=== PATIENT | male | born 1960 | race Caucasian/White ===

== ENCOUNTER 2016-04-28 10:35 | Outpatient (CLI) | payer OTHER | END 2016-04-28 10:36 | disposition home or self-care (01) | DX: E05.00 Thyrotoxicosis with diffuse goiter without thyrotoxic crisis or storm (principal) ==

== ENCOUNTER 2016-05-05 | Outpatient (CLI) | payer OTHER | END 2016-05-05 12:47 | disposition home or self-care (01) | DX: Z01.810 Encounter for preprocedural cardiovascular examination (principal) ==

== ENCOUNTER 2016-05-11 07:22 | Day surgery (SDC) | payer OTHER ==
[2016-05-11] MEDS ORDERED: ceFAZolin 2 GM/50 ML 50 ML IV ONE (07:44)
[2016-05-11] MEDS ORDERED: LACTATED RINGERS 1,000 ML IV ONE ×2 (07:48→10:10)
[2016-05-11] MEDS ORDERED: ONDANSETRON 4 MG/2 ML VIAL IVP ONE (09:30)
[2016-05-11] MEDS ORDERED: LIDOCAINE-MPF 2% 5 ML VIAL IM ONE (09:30)
[2016-05-11] MEDS ORDERED: fentaNYL 100 MCG/2 ML VIAL IVP ONE (09:30)
[2016-05-11] MEDS ORDERED: MIDAZOLAM 2 MG/2 ML VIAL IVP ONE (09:30)
[2016-05-11] MEDS ORDERED: DEXAMETHASONE 4 MG/ML VIAL IVP ONE (09:30)
[2016-05-11] MEDS ORDERED: ROCURONIUM 50 MG/5 ML VIAL IVP ONE (09:30)
[2016-05-11] MEDS ORDERED: PROPOFOL 200 MG/20 ML VIAL IVP ONE (09:30)
[2016-05-11] MEDS ORDERED: SUCCINYLCHOLINE 200 MG/10 ML VIAL IVP ONE (09:30)
[2016-05-11] MEDS ORDERED: ePHEDrine 50 MG/ML AMP IVP ONE (09:30)
[2016-05-11] MEDS: LACTATED RINGERS 1,000 ML IV ONE ×2 (10:10→12:39)
[2016-05-11] MEDS ORDERED: BUPIVACAINE 0.5% PF 30 ML VIAL INFIL ONE (12:10)
[2016-05-11] MEDS: LACTATED RINGERS 1,000 ML IV SCH (13:30)
--- NOTE | 2016-05-11 14:05 | OPERATIVE REPORT ---
DATE OF SURGERY: 05/11/2016 00:00:00 PREOPERATIVE DIAGNOSIS: Graves disease, failed medical therapy. POSTOPERATIVE DIAGNOSIS: Graves disease, failed medical therapy. NAME OF PROCEDURE: Total thyroidectomy. SURGEON: Norm Fu MD ANESTHESIA: Randy Mccollum CRNA, (general endotracheal). TIME: 12:40 ANTISQUEAK CHALKER: MD Nick ESTIMATED BLOOD LOSS: 150 mL. FLUIDS: 1600 mL of crystalloid. SPECIMEN REMOVED: Thyroid. DETAILS OF PROCEDURE: After informed consent was obtained detailing the risks of infection, bleeding, nerve injury resulting in the difficulty to speak and were fully explained to the patient, the patient was taken to the operating room and placed supine on the operating room table. General endot maged anesthesia was induced by Randy Mccollum, and Randy Mccollum provided anesthesia care for the e ntirety of the case. The patient received preoperative antibiotics for prophylaxis against surgical i nfection. The patient had TEDs and Venodynes placed for prophylaxis against deep venous thrombosis. T he patient was then placed in a modified lawn chair position and prepped and draped in the usual charlie dard manner. At this point, a time-in was done that confirmed the patient's name, date of , [facility] record number, allergies, medications, and that we had the personnel and equipment required to pe rform the procedure. With the agreement of everyone in the room, the operation was allowed to proceed . A standard curvilinear incision was made 2 cm above the clavicle. A slightly larger incision was made due to the very enlarged nature of his thyroid. Dissection was carried out down past the platysma us ing Bovie electrocautery. Flaps were then raised superiorly and inferiorly using Bovie electrocautery . The midline was dissected using Bovie electrocautery, and flaps were arranged underneath the strap muscles both on the right and left hand side. The patient's left hand side was addressed first. The t hyroid was mobilized into the wound starting out laterally and moving medially. The superior pole was ligated using a 3-0 silk, and in addition a large clip was used. Please note that small vessels on t he thyroid or branching such as the middle thyroidal were clipped and cut. The superior and inferior parathyroids were seen on the left hand side and left in situ. The dissection then came up bringing u p the thyroid up off the trachea. Great care was taken to stay on the trachea. A small pyramidal lobe was encountered on the left hand side, and this was included with the specimen. Additionally, there was a very hard nodule in the middle portion of the thyroid posteriorly, which was clearly thyroidal, and also brought up with the specimen. Once we got to the midline, attention was placed to the patie nt's right hand side. In a similar manner, the thyroid was brought up off the trachea and brought fro m lateral to medially. The superior pole of the right thyroid was larger. This was brought up into th e wound. The superior pole was suture ligated. The inferior ligation on the superior pole did fall of f causing some bleeding. This was controlled. The thyroid was then taken up off the trachea using Bov ie electrocautery. The thyroid was then sent off operative field for pathologic evaluation. Prior to handing it off, the thyroid was reexamined, and no parathyroid tissue was seen attached to it. The le ft hand side also appeared to be slightly more nodular than the right-hand side. At this point in mathew e, hemostasis was obtained on both sides. There was some oozing but no directed bleeding that could b e seen. As a result, I placed a 10-Icelandic Jose Antonio drain through a separate stab incision inferiorly, an d the drain was placed on the right and left hand side. This was cut to fit. This drain was secured t o the skin using a 3-0 nylon suture, which was cabrera-sandaled about the drain. The strap muscles were approximated at the midline using a running 3-0 Vicryl suture. The platysma was approximated using i nterrupted 3-0 Vicryl sutures. The skin was approximated using a 5-0 nylon suture in an interrupted m attress fashion, and the drain was placed to grenade suction. The patient was subsequently extubated with a visualization of his vocal cords. His vocal cords were noted to be moving well. He was then ta arely to recovery room in good and stable condition having tolerated the procedure well. JOB #: [id number] EXT JOB #:[id number]
[2016-05-11] MEDS ORDERED: HYDROmorphone 1 MG/ML SYRINGE IVP PRN (14:14)
[2016-05-11] MEDS ORDERED: ONDANSETRON 4 MG/2 ML VIAL IVP PRN (14:14)
[2016-05-11] MEDS ORDERED: oxyCOD/ACETAMIN 5 MG/325 MG TABLET PO PRN (14:15)
[2016-05-11] MEDS ORDERED: SODIUM CHLORIDE FLUSH 0.9% 10 ML SYRINGE IVP PRN (14:16)
[2016-05-11] MEDS ORDERED: METOPROLOL TARTRATE 50 MG TABLET PO SCH (21:00)
[2016-05-12] MEDS: LACTATED RINGERS 1,000 ML IV SCH (00:25)
[2016-05-12] MEDS ORDERED: LEVOTHYROXINE 125 MCG TABLET PO SCH (07:00)
[2016-05-12 08:03] VITALS: BP 156/81
== END 2016-05-12 10:40 | disposition home or self-care (01) ==
LOC: SDS 07:22 → MS 12:40 → SDS 05-12 10:40
PROVIDERS: ATTEND Surgery
PROC: 0GTK0ZZ Resection of Thyroid Gland, Open Approach (ICD-10-PCS; principal; 2016-05-11 09:00)
DX: E05.00 Thyrotoxicosis with diffuse goiter without thyrotoxic crisis or storm (principal); J45.909 Unspecified asthma, uncomplicated; I10 Essential (primary) hypertension; Z85.21 Personal history of malignant neoplasm of larynx; G47.30 Sleep apnea, unspecified
CPT/HCPCS: 60240; 88307; A9270; J0690; J7120

== ENCOUNTER 2016-12-14 11:00 | Outpatient (CLI) | payer OTHER ==
[2016-12-14 21:14] LABS: CHOL/HDL RATIO 5.9 (<5.0); CHOLESTEROL 177 mg/dL; HDL CHOLESTEROL 30 mg/dL; LDL/HDL RATIO 4.4 (<3.6); TRIGLYCERIDES 71 mg/dL; VLDL CHOLESTEROL 14 mg/dL
== END 2016-12-14 11:01 | disposition home or self-care (01) ==
LOC: LAB.WCP 11:00
PROVIDERS: ATTEND Family Medicine
DX: E78.5 Hyperlipidemia, unspecified (principal); E03.9 Hypothyroidism, unspecified
CPT/HCPCS: 36415; 80061; 84443

== ENCOUNTER 2017-07-19 08:00 | Outpatient (CLI) | payer OTHER ==
[2017-07-19 19:41] LABS: ALBUMIN 4.5 g/dL (3.2-5.5); ALBUMIN/GLOBULIN RATIO 1.6 (1.0-2.2); ALKALINE PHOSPHATASE 92 IU/L (42-121); ALT ALANINE AMINOTRANSFERASE 17 IU/L (10-60); AST ASPARTATE AMINOTRANSFERASE 15 IU/L (10-42); BILIRUBIN,TOTAL 0.9 mg/dL (0.2-1.0); BUN - BLOOD UREA NITROGEN 18 mg/dL (6-20); CALCIUM 8.5 mg/dL (8.5-10.3); CARBON DIOXIDE - CO2 26 mmol/L (21-32); CHLORIDE 104 mmol/L (101-111); CHOL/HDL RATIO 6.5 (<5.0); CHOLESTEROL 201 mg/dL; CREATININE 0.9 mg/dL (0.6-1.2); GFR - MDRD 88 (>89); GLUCOSE 90 mg/dL (70-100); HDL CHOLESTEROL 31 mg/dL; LDL CHOLESTEROL,CALCULATED 156 mg/dL; SODIUM 137 mmol/L (135-145); TOTAL PROTEIN 7.4 g/dL (6.7-8.2); VLDL CHOLESTEROL 14 mg/dL
[2017-07-19 19:46] LABS: BASOPHILS % (AUTO) 0.5 %; EOSINOPHILS # (AUTO) 0.1 10^3/uL (0.0-0.7); EOSINOPHILS % (AUTO) 0.9 %; HGB - HEMOGLOBIN 14.5 g/dL (14.0-18.0); LYMPHOCYTES # (AUTO) 1.6 10^3/uL (1.5-3.5); LYMPHOCYTES % (AUTO) 25.3 %; MEAN CORPUSCULAR HEMOGLOBIN 30.5 pg (27.0-31.0); MEAN CORPUSCULAR HGB CONC 33.4 g/dL (32.0-36.0); MEAN CORPUSCULAR VOLUME 91.2 fL (80.0-94.0); MONOCYTES # (AUTO) 0.4 10^3/uL (0.0-1.0); MONOCYTES % (AUTO) 6.7 %; NEUTROPHILS # (AUTO) 4.3 10^3/uL (1.5-6.6); NEUTROPHILS % (AUTO) 66.6 %; PLT - PLATELET COUNT 137 10^3/uL (130-450); RED BLOOD COUNT 4.76 10^6/uL (4.70-6.10); RED CELL DISTRIBUTION WIDTH 14.2 % (12.0-15.0); WHITE BLOOD COUNT 6.5 x10^3/uL (4.8-10.8)
== END 2017-07-19 08:01 | disposition home or self-care (01) ==
LOC: LAB.WCP 08:00
PROVIDERS: ATTEND Family Medicine
DX: I10 Essential (primary) hypertension (principal); E03.9 Hypothyroidism, unspecified; E78.5 Hyperlipidemia, unspecified
CPT/HCPCS: 36415; 80053; 80061; 83721; 84443; 85025

== ENCOUNTER 2018-03-20 10:48 | Day surgery (SDC) | payer OTHER ==
[2018-03-20] MEDS ORDERED: LACTATED RINGERS 1,000 ML IV ONE (10:55)
[2018-03-20] MEDS ORDERED: MIDAZOLAM 2 MG/2 ML VIAL IVP ONE (12:04)
[2018-03-20] MEDS ORDERED: fentaNYL 250 MCG/5 ML VIAL IVP ONE (12:04)
[2018-03-20 12:59] VITALS: BP 127/77
== END 2018-03-20 10:49 | disposition home or self-care (01) ==
LOC: SDS 10:48
PROVIDERS: ATTEND Surgery
PROC: 0DJD8ZZ Inspection of Lower Intestinal Tract, Via Natural or Artificial Opening Endoscopic (ICD-10-PCS; principal; 2018-03-20 12:00)
DX: Z12.11 Encounter for screening for malignant neoplasm of colon (principal); Z87.19 Personal history of other diseases of the digestive system; K64.8 Other hemorrhoids; J45.909 Unspecified asthma, uncomplicated; I10 Essential (primary) hypertension; E78.00 Pure hypercholesterolemia, unspecified; E66.9 Obesity, unspecified; Z68.42 Body mass index [BMI] 45.0-49.9, adult; E89.0 Postprocedural hypothyroidism; Z89.011 Acquired absence of right thumb; Z85.21 Personal history of malignant neoplasm of larynx
CPT/HCPCS: 45378; J3010; J7120

== ENCOUNTER 2019-04-24 14:31 | Outpatient (CLI) | payer OTHER ==
--- NOTE | 2019-04-24 16:01 | XRAY Report ---
Reason: DYSPNEA ON EXERTION Procedure Date: 04/24/2019 Accession Number: [id number] / [id number] Procedure: WCP - Chest 2 View X-Ray CPT Code: 00418 Final Report FULL RESULT: EXAM: CHEST RADIOGRAPHY. EXAM DATE: 04/24/2019 02:31 PM. CLINICAL HISTORY: Dyspnea on exertion. COMPARISON: None. TECHNIQUE: 2 views. FINDINGS: Lungs/Pleura: No focal opacities evident. No pleural effusion. No pneumothorax. Normal volumes. Mediastinum: Heart and mediastinal contours are unremarkable. Other: None. IMPRESSION: Normal 2-view chest radiography. RADIA
== END 2019-04-24 14:32 | disposition home or self-care (01) ==
LOC: DI.WCP 14:31
PROVIDERS: ATTEND Family Medicine
DX: R06.09 Other forms of dyspnea (principal)
CPT/HCPCS: 71046

== ENCOUNTER 2019-07-18 07:45 | Outpatient (CLI) | payer OTHER | END 2019-07-18 07:46 | disposition home or self-care (01) | LOC: DI 07:45 | PROVIDERS: ATTEND Physician Assistant | DX: R06.09 Other forms of dyspnea (principal); I11.9 Hypertensive heart disease without heart failure | CPT/HCPCS: 93306 ==

== ENCOUNTER 2019-10-26 14:39 | Outpatient (CLI) | payer OTHER ==
[2019-10-26 15:28] VITALS: BP 148/90
--- NOTE | 2019-10-26 15:28 | SLEEP CARE CONSULTATION ---
Information from patient questionnaire entered by Fransisca Heredia. I have reviewed and concur with the information entered by Fransisca Heredia. This document represents the service I personally performed and the decisions made by , Nichole Noel ARNP. History of Present Illness Service Date and Time: 10/26/2019 1439 Reason for Visit: New patient, Previously diagnosed sleep apnea (Moderate - 23.3 in 2011), Re-establish care Chief Complaint: reports: Snoring, Observed pauses in breathing, Frequent awakenings at night, Other (Enlarged heart (assumed to sleep apnea). denies: Insomnia, Unrefreshed sleep, Excessive daytime sleepiness Duration of Symptoms: 07/2019 Usual bedtime: 8 pm Time it takes to fall asleep: 10-20 mins Snores at night: Yes Observed to quit breathing while asleep: Yes Sleeps alone due to snoring: No Number of times waking at night: 1-2 Reasons for waking at night: reports: Bathroom (very rarely), Other (internal clock). denies: Choking, Snoring, Gasping for air, Pain Toss, Turn, or Twitch while sleeping: Yes Recalls having dreams: Yes Usually gets out of bed at: 2:30 - 4 am Feels refreshed in the morning: Yes Morning headache: No Sleepy or fatigued during the day: No Ever fallen asleep while driving: No Takes day naps: No Dreams during day naps: No Prior sleep studies: Yes Year and Where: 2011 - [facility] Additional HPI information: Patient diagnosed with ALLEN in 2011. 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 After this treatment, he produced mucus that the CPAP pushed into his lungs and had to stop CPAP use. The mucus has since resolved for about the last year, not an issue since February 2019. He is here for re- evaluation and treatment discussion. - Parasomnia Symptoms Ever been unable to move upon waking from sleep: No Walks in sleep: No Talks in sleep: No Ever acted out dreams in sleep: No Ever felt weak in the knees when startled or emotional: No Bothered by creepy, crawly, restless sensations in legs: No Problems with memory or concentration: No Subjective Initial [place] Sleepiness Scale score: 4 (in 2011) Current [place] Sleepiness Scale score: 7 Past Medical History Past Medical History: reports: Hypertension, Hypothyroidism, Asthma, Other (Cholesterol). 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 Patient is and lives in [place]. Have you smoked in the past 12 months: No Alcohol use: No Caffeine use: No Family History Family history of sleep disordered breathing: Yes (parents) Family Hx Sleep Apnea: Father: Snoring Allergies and Home Medications Drug allergies reviewed: Yes (NKDA) Allergy and home medication list: Amlodipine Levothyroxine Losartan inhaler for possible asthma Review of Systems Review of systems same as previous: Yes Weight gain over past 5 years: 45 Cardiovascular: reports: high blood pressure, leg or foot swelling. denies: palpitations, chest pain, irregular heart rate or pulse, have to sleep sitting up Respiratory: reports: shortness of breath. denies: wheeze, chronic cough Gastrointestinal: denies: heartburn, difficulty swallowing, abdominal pain Urinary: denies: impotence Neurological: denies: headaches, seizure, head trauma, disorientation, speech dysfunction, gait or balance problems Psychiatric: denies: Attention Deficit Hyperactivity, anxiety, depression, mood disorder Ear/Nose/Throat: reports: hoarseness, wisdom teeth removed (2 left side). denies: nasal congestion, sinus problems, nose bleeds, dry mouth/throat, injury to nose, tonsillectomy Endocrine: denies: sluggishness, too hot or cold, excessive thirst, increased appetite, increased urination, unexplained weakness Musculoskeletal: denies: joint pain, neck pain, back pain, joint swelling, muscle pain or cramping, mobility problems, other Immunologic: denies: sneezing, rash, itching, allergies to food or environment, other Physical Exam Blood Pressure: 148/90 Cuff size: long Heart Rate: 87 O2 Saturation: 96 Height: 6 ft 7 in Weight: 419 lb Body Mass Index: 47.2 BMI Classification: Morbidly Obese Neck circumference: 20.5 HEENT: No craniofacial malformation Nostrils: patent to airflow Turbinates: normal Septum: midline Mouth and throat: normal Soft palate: normal Hard palate: normal Uvula: normal Uvula visualization: 50% Mallampati Class II Tongue: normal in size Tonsils: 2+ Chin and jaw: normal size and position Heart: regular rate and rhythm Lungs: clear bilaterally Impression and Plan 1. Obstructive Sleep Apnea-Hypopnea Syndrome, as previously diagnosed and matute ggested by a history of loud snoring, observed cessation of breath while asleep and frequent awakening during the night. Patient did have positive previous study showing AHI 23.3 in 2011. 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 The mucus production was so high he was inhaling mucus into his lungs and the CPAP was discontinued until this cleared up. He states since Feb 2019 the mucus has reduced and he is ready to address his sleep breathing issues found in 2012. I recommend proceeding to polysomnography to confirm the diagnosis and to assess severity. I informed the patient of what the sleep studies involve and after some discussion, obtained agreement to proceed. The pathophysiology of obstructive sleep apnea-hypopnea syndrome was discussed with the patient and health risks of cardiovascular and cerebrovascular disease if not treated. Risks of drowsy driving discussed in detail and patient advised to avoid long distance driving and to pin puller at the first sign of drowsiness. Patient agreed to plan. * Schedule polysomnography and return in 1-2 weeks after the study to discuss result and initiate therapy. * Avoid long distance driving or driving when feeling sleepy. * Avoid alcohol, sedative and muscle relaxant around bedtime. * Attempt to lose weight. * Review instructions provided by trained office staff on how to prepare for the sleep study. * Return for follow-up after sleep study completed. Visit Type: In Office Time Spent with Patient (minutes): 30 Provider Statement: I spent 100% of the Face to Face Visit with the patient with greater than 50% spent counseling the patient and coordination of care.
== END 2019-10-26 14:40 | disposition home or self-care (01) ==
LOC: SC 14:39
PROVIDERS: ATTEND Nurse Practitioner Family
DX: G47.33 Obstructive sleep apnea (adult) (pediatric) (principal); E66.01 Morbid (severe) obesity due to excess calories; Z68.42 Body mass index [BMI] 45.0-49.9, adult
CPT/HCPCS: 99204; 99212

== ENCOUNTER 2019-11-23 19:30 | Outpatient (CLI) | payer OTHER | END 2019-11-23 23:59 | disposition home or self-care (01) | LOC: SC 19:30 | PROVIDERS: ATTEND Internal Medicine Pulmonary Disease | DX: G47.33 Obstructive sleep apnea (adult) (pediatric) (principal); E66.01 Morbid (severe) obesity due to excess calories; Z68.42 Body mass index [BMI] 45.0-49.9, adult | CPT/HCPCS: 95806 ==

== ENCOUNTER 2020-02-13 16:43 | Outpatient (CLI) | payer OTHER ==
--- NOTE | 2020-02-13 17:14 | SLEEP CARE CONSULTATION ---
Information from patient questionnaire entered by Abelardo Mock. I have reviewed and concur with the information entered by Abelardo Mock. This document represents the service I personally performed and the decisions made by me, Nichole Noel ARNP. History of Present Illness Service Date and Time: 02/13/2020 1643 Previous diagnosis: Severe, Obstructive Sleep Apnea-Hypopnea Syndrome AHI: 53.7 Reason for follow up: first compliance (12/30/19) Equipment type: CPAP Equipment obtained from: [employer] ([place]; original shipment so far) Mask style: Nasal pillows Backup mask available: No (keep mask when replaced next) Last cushion change: over a month Prior sleep [facility]: Yes [facility] HPI additional information: IRMA SANCHEZ was diagnosed to have severe, AHI 53.7, obstructive sleep apnea-hypopnea syndrome and returned today for CPAP therapy first compliance follow-up. Sleep Study - Results Prior sleep studies: Yes Year and Where: 2011 - [facility] CPAP Compliance Data - Data Reviewed with Patient Average duration of nightly device use: 7 h 4 min Compliance rate %: 100 Current pressure setting (cmH2O): 4-15 Average residual AHI: 1.0 Central apnea: 0.0 Obstructive apnea: 0.6 Subjective Patient concerns: reports: other (feels like there is a little water in ears, improved). denies: aerophagia, mask discomfort, air blowing in eyes, mask leak noise, condensation in mask/hose, nasal congestion, dry mouth, nose, throat, epistaxis Observed to snore while using device: No (as far he knows) Current pressure setting perceived as: comfortable On therapy, patient: reports: other (he is unsure if there is a change from before starting therapy). denies: drowsiness while driving Initial [place] Sleepiness Scale score: 4 (in 2012) Current [place] Sleepiness Scale score: 0 Allergies and Home Medications Drug allergies reviewed: Yes (NKDA) Home medication list reviewed: Yes (no changes) Review of Systems Review of systems same as previous: Yes (no changes) Physical Exam Heart Rate: 87 O2 Saturation: 97 Height: 6 ft 7 in Weight: 412 lb Body Mass Index: 46.4 BMI Classification: Morbidly Obese Impression and Plan 1. Obstructive Sleep Apnea-Hypopnea Syndrome, severe, with excellent treatment compliance and good apnea control. On CPAP therapy, the patient does not feel like there is any difference in his overall sleep and daily energy but his Arma scale is 0 today. He also has excellent apnea control with a residual AHI of 1.0. I will adjust his pressure to 10-14 cm H2O since his median pressure is 9.9 cm H2O, his 95% pressure is 12.9 cm H2O and max pressure at 14.1 cm H2O. He was able to use a nasal pillows mask with good results but has not gotten more supplies to change out his cushion. I encouraged him to call the company to find out how to order his new supplies. He voiced understanding and agreement with plan. Patient's apnea severity and rationale for treatment to reduce apnea, improve sleep quality and reduce cardiovascular and cerebrovascular events was reviewed. I also reviewed the benefit of consistent device use of CPAP for hypertension. * Change autoCPAP pressure to 10-14 cmH2O * Notify me if snoring with mask or feeling that the pressure is too much or too little * Attempt to lose weight * Call this office if any problems using CPAP * Return for follow up in 1-2 months, or sooner if concerns arise Counseling Topics: Spare mask, Weight loss health impact Visit Type: In Office Time Spent with Patient (minutes): 18 Provider Statement: I spent 100% of the Face to Face Visit with the patient with greater than 50% spent counseling the patient and coordination of care.
== END 2020-02-13 16:44 | disposition home or self-care (01) ==
LOC: SC 16:43
PROVIDERS: ATTEND Nurse Practitioner Family
DX: G47.33 Obstructive sleep apnea (adult) (pediatric) (principal); E66.01 Morbid (severe) obesity due to excess calories; Z68.42 Body mass index [BMI] 45.0-49.9, adult
CPT/HCPCS: 99212

== ENCOUNTER 2020-03-25 11:11 | Outpatient (CLI) | payer OTHER ==
--- NOTE | 2020-03-25 11:48 | SLEEP CARE CONSULTATION ---
Information from patient questionnaire entered by Fransisca Heredia. I have reviewed and concur with the information entered by Fransisca Heredia. This document represents the service I personally performed and the decisions made by , Nichole Noel ARNP. History of Present Illness Service Date and Time: 03/25/2020 1111 Previous diagnosis: Severe, Obstructive Sleep Apnea-Hypopnea Syndrome AHI: 53.7 (in 2019)(23.3 in 2012) Reason for follow up: other (6 week with pressure change) Equipment type: CPAP Equipment obtained from: [employer] (getting supplies as needed) Mask style: Nasal pillows Backup mask available: No (other mask) Last cushion change: 1 month Prior sleep studies: Yes Year and Where: 2019 - [facility] ; 2011 - [facility] ([place]) Type of Sleep Study: Home sleep study HPI additional information: IRMA SANCHEZ was diagnosed to have severe, AHI 53.7, obstructive sleep apnea-hypopnea syndrome and returned today for CPAP therapy 6 week pressure change follow-up. CPAP Compliance Data - Data Reviewed with Patient Average duration of nightly device use: 6 hr 40 min Compliance rate %: 100 Current pressure setting (cmH2O): 10-14 Humidity settin Average residual AHI: 0.7 Subjective Patient concerns: denies: aerophagia, mask discomfort, air blowing in eyes, mask leak noise, condensation in mask/hose, nasal congestion, dry mouth, nose, throat, epistaxis, other Observed to snore while using device: No Current pressure setting perceived as: comfortable On therapy, patient: reports: sleeping better, awakening more refreshed, being more awake and alert during the day, more rested overall. denies: drowsiness while driving Initial [place] Sleepiness Scale score: 4 (in 2012) Current [place] Sleepiness Scale score: 3 Allergies and Home Medications Drug allergies reviewed: Yes (NKDA) Home medication list reviewed: Yes (no changes) Review of Systems Review of systems same as previous: Yes (no changes) Physical Exam Heart Rate: 87 O2 Saturation: 97 Height: 6 ft 7 in Weight: 410 lb Weight change since last visit: 2 lbs Body Mass Index: 46.1 BMI Classification: Morbidly Obese Impression and Plan 1. Obstructive Sleep Apnea-Hypopnea Syndrome, severe, with excellent treatment compliance and great apnea control. On CPAP therapy, the patient has better sleep quality and is more rested overall. He is feeling very comfortable with his CPAP therapy. He has had the headgear come up a little on the back of his head but it is not coming off of his head. I explained to patient that there is some headgear arms that could be obtained and used to help keep the back of the headgear down on the head if this should become a problem. He states it is not problematic yet and will keep this in mind. We will follow up with him in 3 months. Patient's apnea severity and rationale for treatment to reduce apnea, improve sleep quality and reduce cardiovascular and cerebrovascular events was reviewed. I also reviewed the benefit of consistent device use of CPAP for hypertension. * Continue auto CPAP pressure at 10-14 cmH2O * Notify me if snoring with mask or feeling that the pressure is too much or too little * Attempt to lose weight * Call this office if any problems using CPAP * Return for follow up in 3 months, or sooner if concerns arise Counseling Topics: Spare mask, Weight loss health impact Visit Type: In Office Time Spent with Patient (minutes): 17 Provider Statement: I spent 100% of the Face to Face Visit with the patient with greater than 50% spent counseling the patient and coordination of care.
== END 2020-03-25 11:12 | disposition home or self-care (01) ==
LOC: SC 11:11
PROVIDERS: ATTEND Nurse Practitioner Family
DX: G47.33 Obstructive sleep apnea (adult) (pediatric) (principal); E66.01 Morbid (severe) obesity due to excess calories; Z68.42 Body mass index [BMI] 45.0-49.9, adult
CPT/HCPCS: 99212; 99213

== ENCOUNTER 2020-04-15 11:21 | Outpatient (CLI) | payer OTHER ==
--- NOTE | 2020-04-15 17:07 | CT Report ---
PROCEDURE: CHEST WO INDICATIONS: DYSPNEA ON EXERTION TECHNIQUE: Noncontrast 5 mm thick sections acquired from the pulmonary apices to the posterior costophrenic angl es. 7 mm thick coronal and sagittal MIP reformats were then acquired. For radiation dose reduction, the following was used: automated exposure control, adjustment of mA and/or kV according to patient size. COMPARISON: FINDINGS: Image quality: Excellent. Lungs and pleura: No acute air space opacities. There is no sign of pneumonia or pneumonitis, or pu lmonary fibrotic change. Note is made of a mild degree of mid and lower lung peribronchial soft tissu e prominence consistent with mild chronic bronchitis. No bronchiectasis is present. No pleural effusi ons or pneumothorax. Central and peripheral airways are patent and normal in caliber. Mediastinum: Heart size is normal. No pericardial effusion. No mediastinal adenopathy by size crit eria. Thoracic aorta and central pulmonary arteries are normal in size. Esophagus is normal in [place] adalid. No hiatal hernia. Bones and chest wall: No suspicious bony lesions. No vertebral body compression fractures. No axil rachel or supraclavicular adenopathy by size criteria. The thyroid is normal in size. Abdomen: Visualized upper abdominal solid organs and bowel loops appear normal in the absence of con trast. IMPRESSION: No alveolitis or pulmonary fibrosis present, no sign of emphysematous change. By this examination und erlying mild chronic bronchitis is suspected given the small degree of peribronchial soft tissue prom inence noted within the mid and lower lungs. No reactive adenopathy is seen. No aortic aneurysm or di ssection is detected., Reviewed by: Flakito Kwok MD on 04/15/2020 5:06 PM PST Approved by: Flakito Kwok MD on 04/15/2020 5:06 PM PST Station ID: [id number]
== END 2020-04-15 11:22 | disposition home or self-care (01) ==
LOC: DI 11:21
PROVIDERS: ATTEND Physician Assistant
DX: R06.09 Other forms of dyspnea (principal)
CPT/HCPCS: 71250

== ENCOUNTER 2020-06-25 10:57 | Outpatient (CLI) | payer OTHER ==
--- NOTE | 2020-06-25 11:23 | SLEEP CARE CONSULTATION ---
Information from patient questionnaire entered by Fransisca Heredia. I have reviewed and concur with the information entered by Fransisca Heredia. This document represents the service I personally performed and the decisions made by , Nichole Noel ARNP. History of Present Illness Service Date and Time: 06/25/2020 1057 Previous diagnosis: Severe, Obstructive Sleep Apnea-Hypopnea Syndrome AHI: 53.7 (in 2019) Reason for follow up: three month Equipment type: CPAP Equipment obtained from: [employer] (getting supplies as needed) Mask style: Nasal pillows Backup mask available: No (will keep mask once replaced) Last cushion change: February Prior sleep studies: Yes Year and Where: 2019 - [email or web address] ; 2011 - [email or web address] ([place]) Type of Sleep Study: Home sleep study HPI additional information: IRMA SANCHEZ was diagnosed to have severe, AHI 53.7, obstructive sleep apnea-hypopnea syndrome and returned today for CPAP therapy three month follow- up. CPAP Compliance Data - Data Reviewed with Patient Average duration of nightly device use: 6 hr 45 min Compliance rate %: 100 (90 days) Current pressure setting (cmH2O): 10-14 Humidity settin Average residual AHI: 0.5 Subjective Patient concerns: denies: aerophagia, mask discomfort, air blowing in eyes, mask leak noise, condensation in mask/hose, nasal congestion, dry mouth, nose, throat, epistaxis, other Observed to snore while using device: No Current pressure setting perceived as: comfortable On therapy, patient: reports: other (he feels little difference between CPAP use and prior to CPAP use). denies: drowsiness while driving Initial [place] Sleepiness Scale score: 4 (in 2011) Current [place] Sleepiness Scale score: 3 Allergies and Home Medications Home medication list reviewed: Yes (no changes) Review of Systems Review of systems same as previous: Yes (no changes) Physical Exam Heart Rate: 58 O2 Saturation: 98 Height: 6 ft 7 in Weight: 402 lb Weight change since last visit: 8 loss Body Mass Index: 45.3 BMI Classification: Morbidly Obese Impression and Plan 1. Obstructive Sleep Apnea-Hypopnea Syndrome, severe, with excellent treatment compliance and excellent apnea control. On CPAP therapy, the patient states that he wakes up feeling rested just as he did before starting CPAP therapy. His current [place] is 3/24 which is down from the 08/02 initially. He has no issues or concerns with CPAP use. He has been losing weight since he started CPAP. He lost 8 pounds since his last visit. He was encouraged to continue to try to lose weight. Patient's apnea severity and rationale for treatment to reduce apnea, improve sleep quality and reduce cardiovascular and cerebrovascular events was reviewed. I also reviewed the benefit of consistent device use of CPAP for hypertension. * Continue auto CPAP pressure at 10-14 cmH2O * Notify me if snoring with mask or feeling that the pressure is too much or too little * Continue to lose weight * Call this office if any problems using CPAP * Return for follow up in 1 year, or sooner if concerns arise Counseling Topics: Spare mask, Weight loss health impact Visit Type: In Office Time Spent with Patient (minutes): 15 Provider Statement: I spent 100% of the Face to Face Visit with the patient with greater than 50% spent counseling the patient and coordination of care.
== END 2020-06-25 10:58 | disposition home or self-care (01) ==
LOC: SC 10:57
PROVIDERS: ATTEND Nurse Practitioner Family
DX: G47.33 Obstructive sleep apnea (adult) (pediatric) (principal); E66.01 Morbid (severe) obesity due to excess calories; Z68.42 Body mass index [BMI] 45.0-49.9, adult
CPT/HCPCS: 99212

== ENCOUNTER 2021-06-23 15:53 | Outpatient (CLI) | payer OTHER ==
[2021-06-23 16:36] VITALS: BP 130/69
--- NOTE | 2021-06-23 16:36 | SLEEP CARE CONSULTATION ---
Information from patient questionnaire entered by Evette Sanchez MA. I have reviewed and concur with the information entered by Evette Sanchez MA. This document represents the service I personally performed and the decisions made by , Nichole Noel ARNP. History of Present Illness Service Date and Time: 06/23/2021 1553 Previous diagnosis: Severe, Obstructive Sleep Apnea-Hypopnea Syndrome AHI: 53.7 (in 2019) Reason for follow up: annual (LAST SEEN 05/2020,) Equipment type: CPAP Equipment obtained from: [employer] (getting supplies as needed) Mask style: Nasal pillows Backup mask available: Yes (old mask) Last cushion change: 1.5 months ago Prior sleep studies: Yes Year and Where: 2019 - [facility] ; 2011 - [facility] ([place]) Type of Sleep Study: Home sleep study HPI additional information: IRMA SANCHEZ was diagnosed to have severe, AHI 53.7, obstructive sleep apnea-hypopnea syndrome and returned today for CPAP therapy annual follow-up. Sleep Study - Results Type of Sleep Study: Home sleep study Prior sleep studies: Yes Year and Where: 2019 - [facility] ; 2011 - [facility] ([place]) CPAP Compliance Data - Data Reviewed with Patient Average duration of nightly device use: 6 HOURS 52 MINUTES Compliance rate %: 100 Current pressure setting (cmH2O): 10-14 Average residual AHI: 0.3 Central apnea: .0 Obstructive apnea: .1 Average large leak: 31.8 Subjective Patient concerns: denies: aerophagia, mask discomfort, air blowing in eyes, mask leak noise, condensation in mask/hose, nasal congestion, dry mouth, nose, throat, epistaxis, other Observed to snore while using device: No Current pressure setting perceived as: comfortable On therapy, patient: reports: other (no changes from before he started using CPAP ). denies: drowsiness while driving Initial [place] Sleepiness Scale score: 4 (in 2011) Current [place] Sleepiness Scale score: 1 Allergies and Home Medications Home medication list reviewed: Yes (no changes) Allergy and home medication list: Allergies No Known Drug Allergies Allergy (Verified 06/29/19 09:40) Review of Systems Review of systems same as previous: Yes (no changes) Physical Exam Vital signs obtained and entered by: DAVID ATKINS Blood Pressure: 130/69 (left) Cuff size: long Heart Rate: 78 O2 Saturation: 96 Height: 6 ft 7 in Weight: 404 lb Weight change since last visit: 2 lb gain Body Mass Index: 45.5 BMI Classification: Morbidly Obese Impression and Plan 1. Obstructive Sleep Apnea-Hypopnea Syndrome, severe, with excellent treatment compliance and excellent apnea control. On CPAP therapy, the patient has not noticed any difference from before he started using CPAP to after with his quality of sleep were restfulness. He does use his CPAP regularly and has significant improvement of his sleep apnea. He has no issues or complaints with using his CPAP. Patient's apnea severity and rationale for treatment to reduce apnea, improve sleep quality and reduce cardiovascular and cerebrovascular events was reviewed. I also reviewed the benefit of consistent device use of CPAP for hypertension. 2. Obesity, unspecified. Patient has gained weight. Currently patients BMI is 45.5. Obesity increases the risk of apnea, CPAP pressure requirements and overall health risks especially cardiovascular and diabetes. Thus patient is advised to lose weight. Weight loss can be done with reducing portion size, reducing refined foods and balancing content with vegetables, fruit and whole grain foods. In addition, patient encouraged to get regular exercise. The patient's CPAP pressure range should accommodate some weight loss. * Continue auto CPAP pressure at 10-14 cmH2O * Notify me if snoring with mask or feeling that the pressure is too much or too little * Attempt to lose weight * Call this office if any problems using CPAP * Return for follow up in 1 year, or sooner if concerns arise Counseling Topics: Spare mask, Weight loss health impact Visit Type: In Office Time Spent with Patient (minutes): 13 Provider Statement: I spent 100% of the Face to Face Visit with the patient with greater than 50% spent counseling the patient and coordination of care.
== END 2021-06-23 15:54 | disposition home or self-care (01) ==
LOC: SC 15:53
PROVIDERS: ATTEND Nurse Practitioner Family
DX: G47.33 Obstructive sleep apnea (adult) (pediatric) (principal); E66.01 Morbid (severe) obesity due to excess calories; Z68.42 Body mass index [BMI] 45.0-49.9, adult
CPT/HCPCS: 99212

== ENCOUNTER 2021-09-01 14:27 | Outpatient (CLI) | payer OTHER ==
--- NOTE | 2021-09-01 16:57 | XRAY Report ---
PROCEDURE: Knee 3 View LT INDICATIONS: L KNEE PX TECHNIQUE: 3 views of the left knee(s) were acquired. COMPARISON: None. FINDINGS: Bones: No fractures or dislocations. No suspicious bony lesions. Moderate tricompartmental arthrit ic change. Periarticular osteophytes are present. No erosions. Soft tissues: Minimal joint effusion. No suspicious soft tissue calcifications. IMPRESSION: Tricompartmental arthritic change. Reviewed by: Bria Mortensen MD on 09/01/2021 4:56 PM PDT Approved by: Bria Mortensen MD on 09/01/2021 4:56 PM PDT Station ID: [id number]
== END 2021-09-01 14:28 | disposition home or self-care (01) ==
LOC: DI.N 14:27
PROVIDERS: ATTEND Nurse Practitioner Family
DX: M17.12 Unilateral primary osteoarthritis, left knee (principal)

== ENCOUNTER 2021-12-07 08:00 | Outpatient (CLI) | payer OTHER ==
--- NOTE | 2021-12-07 16:13 | XRAY Report ---
PROCEDURE: Knee 2 View LT INDICATIONS: KNEE PAIN TECHNIQUE: Weightbearing. 2 views of the left knee, one view of the right knee. COMPARISON: Left knee radiographs 09/01/2021 FINDINGS: Bones: No fractures or dislocations. No suspicious bony lesions. Similar mild narrowing and spurri ng at the medial and lateral compartments of the left knee. Mild medial compartment narrowing of the right knee also demonstrated. Soft tissues: No suspicious soft tissue calcifications. IMPRESSION: Similar degenerative changes of the left knee. Reviewed by: Howard Randhawa MD on 12/07/2021 4:12 PM PDT Approved by: Howard Randhawa MD on 12/07/2021 4:12 PM PDT Station ID: [id number]
== END 2021-12-07 23:59 | disposition home or self-care (01) ==
LOC: DI.WOS 08:00
PROVIDERS: ATTEND Physician Assistant Surgical
DX: M17.12 Unilateral primary osteoarthritis, left knee (principal)

== ENCOUNTER 2022-08-25 13:45 | Outpatient (CLI) | payer OTHER ==
--- NOTE | 2022-08-25 14:16 | Sleep Patient Instructions ---
Sleep Center Visit Summary - Patient Visit Information Reason for Visit: Annual follow up for CPAP therapy - Patient Instructions Additional Instructions: You will continue with CPAP therapy with pressure set at 10-14 cmH2O. A supply prescription will be updated with your DME. We encourage you to continue to try to lose weight. Please follow up with the sleep care office in 1 year. - Clinic Information Contact: [facility] [address] [place] [address] [email or web address] T: [phone]
--- NOTE | 2022-08-25 14:28 | SLEEP CARE CONSULTATION ---
Information from patient questionnaire entered by Jennifer Rivas. I have reviewed and concur with the information entered by Jennifer Rivas. This document represents the service I personally performed and the decisions made by me, Nichole Noel ARNP. History of Present Illness Service Date and Time: 08/25/2022 1345 Previous diagnosis: Severe, Obstructive Sleep Apnea-Hypopnea Syndrome AHI: 53.7 (in 2019) Reason for follow up: annual (LAST SEEN 06/2021) Equipment type: CPAP (RESMED Airsense 10, s/u 12/2019) Equipment obtained from: [employer] (getting supplies as needed) Mask style: Nasal pillows Backup mask available: Yes (old mask) Last cushion change: 6 weeks Prior sleep studies: Yes Year and Where: 2019 - [email or web address] ; 2011 - [facility] ([place]) Type of Sleep Study: Home sleep study HPI additional information: IRMA SANCHEZ was diagnosed to have severe, AHI 53.7, obstructive sleep apnea-hypopnea syndrome and returned today for CPAP therapy annual follow-up. Sleep Study - Results Type of Sleep Study: Home sleep study Prior sleep studies: Yes Year and Where: 2019 - [facility] ; 2011 - [facility] ([place]) CPAP Compliance Data - Data Reviewed with Patient Average duration of nightly device use: 6 HRS 47 MINS Compliance rate %: 100 (02/25/22-08/23/22; 180/180 days used) Current pressure setting (cmH2O): 10-14 Average residual AHI: 0.2 Central apnea: 0.0 Obstructive apnea: 0.1 Hypopnea: 0.1 Average large leak: 3.0 L/min Subjective Patient concerns: denies: aerophagia, mask discomfort, air blowing in eyes, mask leak noise, condensation in mask/hose, nasal congestion, dry mouth, nose, throat, epistaxis Observed to snore while using device: No Current pressure setting perceived as: comfortable On therapy, patient: reports: sleeping better, awakening more refreshed, being more awake and alert during the day, more rested overall. denies: drowsiness while driving Initial [place] Sleepiness Scale score: 4 (in 2011) Current [place] Sleepiness Scale score: 0 (08/25/22) Allergies and Home Medications Known drug allergies: No Drug allergies reviewed: Yes Home medication list reviewed: Yes (no changes) Allergy and home medication list: Allergies No Known Drug Allergies Allergy (Verified 08/24/22 14:08) Review of Systems Review of systems same as previous: Yes (no changes) Physical Exam Vital signs obtained and entered by: JENNIFER Mejia MA Blood Pressure: 144/82 (LEFT ARM) Cuff size: long Heart Rate: 76 O2 Saturation: 95 Height: 6 ft 7 in Weight: 425 lb 12.8 oz (with clothes/shoes) Weight change since last visit: 21 lb gain Body Mass Index: 47.9 BMI Classification: Morbidly Obese Impression and Plan 1. Obstructive Sleep Apnea-Hypopnea Syndrome, severe, with good treatment compliance and good apnea control. On CPAP therapy, the patient has better sleep quality and is more rested overall. Patient has significant improvement of their sleep apnea and is satisfied with current CPAP therapy. Patient denies problems with oral dryness, nasal congestion, epistaxis, skin irritation or aerophagia. Patient's apnea severity and rationale for treatment to reduce apnea, improve sleep quality and reduce cardiovascular and cerebrovascular events was reviewed. I also reviewed the benefit of consistent device use of CPAP for hypertension. 2. Obesity, unspecified. Currently patients BMI is 47.9. Obesity increases the risk of apnea, CPAP pressure requirements and overall health risks especially cardiovascular and diabetes. Thus patient is advised to lose weight. * Continue auto CPAP pressure at 10-14 cmH2O * Update supplies * Notify me if snoring with mask or feeling that the pressure is too much or too little * Attempt to lose weight * Call this office if any problems using CPAP * Return for follow up in 1 year, or sooner if concerns arise Counseling Topics: Weight loss health impact Visit Type: In Office Time Spent with Patient (minutes): 14 Provider Statement: I spent 100% of the Face to Face Visit with the patient with greater than 50% spent counseling the patient and coordination of care.
[2022-08-25 14:29] VITALS: BP 144/82
== END 2022-08-25 13:46 | disposition home or self-care (01) ==
LOC: SC 13:45
PROVIDERS: ATTEND Nurse Practitioner Family
DX: G47.33 Obstructive sleep apnea (adult) (pediatric) (principal); E66.01 Morbid (severe) obesity due to excess calories; Z68.42 Body mass index [BMI] 45.0-49.9, adult
CPT/HCPCS: 99212

== ENCOUNTER 2023-08-26 08:29 | Outpatient (CLI) | payer OTHER ==
--- NOTE | 2023-08-26 08:48 | Sleep Patient Instructions ---
Sleep Center Visit Summary - Patient Visit Information Reason for Visit: Annual follow-up - Patient Instructions Additional Instructions: You will continue with CPAP therapy with pressure set at 10-14 cmH2O. A supply prescription will be updated with your DME. We encourage you to continue to try to lose weight. Please follow up with the sleep care office in 1 year. - Clinic Information Contact: [facility] [address] [place] [address] [email or web address] T: [phone]
--- NOTE | 2023-08-26 08:52 | SLEEP CARE CONSULTATION ---
Information from patient questionnaire entered by Kyung Rivas. I have reviewed and concur with the information entered by Kyung Rivas. This document represents the service I personally performed and the decisions made by , Nichole Noel ARNP. History of Present Illness Service Date and Time: 08/26/2023 08 Previous diagnosis: Severe, Obstructive Sleep Apnea-Hypopnea Syndrome AHI: 53.7 (in 2019) Reason for follow up: annual (LAST SEEN 08/2022) Equipment type: CPAP (RESMED Airsense 10, s/u 12/2019) Equipment obtained from: [employer] (getting supplies as needed) Mask style: Nasal pillows Mask brand: Resmed ([id number]) Backup mask available: Yes Last cushion change: 1 week Prior sleep studies: Yes Year and Where: 2019 - [facility] ; 2011 - [facility] ([place]) Type of Sleep Study: Home sleep study HPI additional information: IRMA SANCHEZ was diagnosed to have severe, AHI 53.7, obstructive sleep apnea-hypopnea syndrome and returned today for CPAP therapy annual follow-up. Sleep Study - Results Type of Sleep Study: Home sleep study Prior sleep studies: Yes Year and Where: 2019 - [facility] ; 2011 - [facility]) CPAP Compliance Data - Data Reviewed with Patient Average duration of nightly device use: 6 HRS 56 MINS Compliance rate %: 93 (08/24/22-08/23/23; 342/365 days used) Current pressure setting (cmH2O): 10-14 Average residual AHI: 0.5 Central apnea: 0.2 Obstructive apnea: 0.1 Hypopnea: 0.1 Average large leak: 2.6 L/min Subjective Missed days of use due to: reports: other (test) Patient concerns: denies: aerophagia, mask discomfort, air blowing in eyes, mask leak noise, condensation in mask/hose, nasal congestion, dry mouth, nose, throat, epistaxis Observed to snore while using device: No Current pressure setting perceived as: comfortable On therapy, patient: reports: more rested overall. denies: drowsiness while driving Initial [place] Sleepiness Scale score: 4 (in 2011) Current [place] Sleepiness Scale score: 0 Allergies and Home Medications Known drug allergies: No Drug allergies reviewed: Yes Home medication list reviewed: Yes (no changes) Allergy and home medication list: Allergies No Known Drug Allergies Allergy (Verified 08/24/23 10:50) Review of Systems Review of systems same as previous: Yes (no changes) Physical Exam Vital signs obtained and entered by: NICHOLE CAMPBELL Blood Pressure: 94/62 Cuff size: long (right arm) Heart Rate: 73 O2 Saturation: 98 Height: 6 ft 7 in Weight: 366 lb Weight change since last visit: 59 lb loss Body Mass Index: 41.2 BMI Classification: Morbidly Obese Impression and Plan 1. Obstructive Sleep Apnea-Hypopnea Syndrome, severe, with good treatment compliance and good apnea control. On CPAP therapy, the patient is more rested overall. He says he did an experiment and went without CPAP for a week. He noticed that his snoring came back the last couple of nights but otherwise he felt his sleep was as good as if he had been using his CPAP. He is back to using his CPAP regularly with no complaints. He has significant current improvement of his sleep apnea. We will see him back in the office next year. Patient's apnea severity and rationale for treatment to reduce apnea, improve sleep quality and reduce cardiovascular and cerebrovascular events was reviewed. I also reviewed the benefit of consistent device use of CPAP for hypertension. 2. Obesity, unspecified. Currently patients BMI is 41.2. Obesity increases the risk of apnea, CPAP pressure requirements and overall health risks especially cardiovascular and diabetes. Thus patient is advised to continue to try to lose weight. * Continue auto CPAP pressure at 10-14 cmH2O * Update supply prescription * Notify me if snoring with mask or feeling that the pressure is too much or too little * Attempt to lose weight * Call this office if any problems using CPAP * Return for follow up in 12 months, or sooner if concerns arise Counseling Topics: Weight loss health impact Prescriptions: Device supplies Follow up with Sleep Care in: 1 year Visit Type: In Office Time Spent with Patient (minutes): 20 Provider Statement: I spent 100% of the Face to Face Visit with the patient with greater than 50% spent counseling the patient and coordination of care.
[2023-08-26 09:17] VITALS: BP 94/62; O2SAT 98
== END 2023-08-26 08:30 | disposition home or self-care (01) ==
LOC: SC 08:29
PROVIDERS: ATTEND Nurse Practitioner Family
DX: G47.33 Obstructive sleep apnea (adult) (pediatric) (principal); E66.01 Morbid (severe) obesity due to excess calories; Z68.41 Body mass index [BMI] 40.0-44.9, adult
CPT/HCPCS: 99212; 99213